=== PATIENT | female | born 1950 | race Caucasian/White ===

== ENCOUNTER 2017-11-12 16:10 | Inpatient (IN) | payer MEDICARE, MEDICAID ==
--- NOTE | 2017-11-12 16:31 | ED Physician Chart ---
ED Chief Complaint/HPI - Patient Information Date Seen:: 11/12/17 Time Seen:: 16:31 Chief Complaint:: Right knee pain History of Present Illness:: 66 yo female with history of laryngeal cancer undergoing chemotherapy 2 days ago. She then had right knee pain when walking. She is s/p right femur ORIF and right total knee replacement. She was brought by ambulance to ER. At ER, she was noticed to have increased airway secretion and congestion as well as low grade fever. Allergies:: Allergies Allergy/AdvReac Type Severity Reaction Status Date / Time naproxen sodium [From Aleve] Allergy Verified 02/28/16 14:43 Vitals:: Vital Signs - 8 hr 11/12/17 16:17 Temp 98.9 F HR 74 RR 16 BP 131/89 O2 Sat % 97 ED Review of Systems - Review of Systems General/Constitutional: Fever Skin: Skin lesions Head: Headache Eyes: No loss of vision ENT: Other (hoarse voice) Neck: Neck pain, Other (left neck mass) Cardio Vascular: No chest pain Pulmonary: Sputum, Other (congestion, difficulty breathing) GI: No nausea, No vomiting Musculoskeletal: Bone or joint pain ED Past Medical History - Past Medical History Past Medical History: HTN, Other (Laryngeal cancer undergoing chemotherapy) Social History: Smoker (former), No Alcohol, No Drug Use Family Medical History - Family Member Mother History Unknown: Yes Living Status: Hx Family Cancer: No Hx Family Coronary Artery Disease: No Hx Family Hypertension: Yes Hx Family Diabetes: Yes Hx Family Seizures: No Hx Family AIDS: No Hx Family HIV: No Hx Family COPD: No Hx Family Hepatitis: No Hx Family Psychiatric Problems: No ED Physical Exam - Physical Examination General/Constitutional: Awake, Alert Head: Atraumatic Eyes: PERRL Other Skin comments:: neck ecchymosis ENMT: Nasal exam nl Other Neck comments:: Left upper neck large mass Other Respiratory comments:: large airway rhonchi and thick secretion Cardio Vascular: RRR, No murmur, gallop, rubs, NL S1 S2 GI: No tenderness/rebounding/guarding Other GI comments:: G-tube intact Other Extremities comments:: atrophy Neuro/Psych: No focal deficits ED Assessment - Assessment General Assessment: Bronchitis UTI Hypoxemia Hypokalemia Hyponatremia Alkalosis Assessment/Comments:: CBC, CMP, UA CXR, EKG NS 1L IV bolus Rocephin KCL 40mEq PO DuoNeb Pain control Admit to med surg ED Septic Shock - . Is Septic Shock (SBP<90, OR Lactate>4 mmol\L) present?: No - <6hrs of presentation: Vital Signs: Vital Signs - 8 hr 11/12/17 16:17 Temp 98.9 F HR 74 RR 16 BP 131/89 O2 Sat % 97 ED Reassessment (Disposition) - Reassessment Reassessment Condition:: Improved - Patient Disposition Discharge/Transfer:: Acute Care w/in this hosp Admitting Medical Physician:: Bassam Owen
[2017-11-12 17:00] LABS: % BASOPHILS 1.3 % (0.0-2.0); % EOSINOPHILS 0.1 % (0.0-5.0); % LYMPHOCYTES 27.2 % (20.0-50.0); % MONOCYTES 8.2 % (2.0-10.0); % NEUTROPHILS 63.2 % (40.0-80.0); BASOPHILE ABSOLUTE 0.1 Th/cumm (0-0.2); HEMATOCRIT 31.2 % (41.0-60); HEMOGLOBIN 10.7 gm/dL (12-16); LYMPHOCYTE ABSOLUTE 1.8 Th/cmm (1.5-3.0); MEAN CELL VOLUME 85.5 fl (81-100); MEAN CORPUSCULAR HEMOGLOBIN 29.3 pg (27.0-31.0); MEAN CORPUSCULAR HGB CONC 34.2 pg (28.0-36.0); MEAN PLATELET VOLUME 7.3 fl; MONOCYTE ABSOLUTE 0.5 Th/cmm (0.3-1.0); NEUTROPHILE ABSOLUTE 4.2 Th/cmm (1.8-8.0); RED BLOOD COUNT 3.65 Mil/cmm (3.80-5.20); RED CELL DISTRIBUTION WIDTH 14.6 % (11.5-20.0); WHITE BLOOD COUNT 6.6 Th/cmm (4.8-10.8)
[2017-11-12 17:01] LABS: PLATELET COUNT 335 Th/cmm (150-400)
[2017-11-12 17:16] LABS: ALB/GLOB RATIO 0.8 (1.0-1.8); ALBUMIN 3.3 gm/dL (3.7-5.3); ALKALINE PHOSPHATASE 51 U/L (34-104); ANION GAP 14.2 (7.0-16.0); BILIRUBIN,TOTAL 0.7 mg/dL (0.3-1.0); BUN - UREA NITROGEN 19 mg/dL (7-25); CALCIUM SERUM 8.8 mg/dL (8.6-10.3); CARBON DIOXIDE 36.2 mEq/L (21.0-31.0); CHLORIDE 83 mEq/L (98-107); CREATININE - SERUM 0.6 mg/dL (0.6-1.2); GFR AFRICAN-AMERICAN > 60.0 ml/min (>90); GFR NON AFRICAN-AMERICAN > 60.0 ml/min; GLUCOSE 104 mg/dL (70-105); SGOT 43 U/L (13-39); SGPT/ALT 19 U/L (7-52); SODIUM SERUM 131 mEq/L (136-145); TOTAL PROTEIN,SERUM 7.3 gm/dL (6.0-8.3)
[2017-11-12] MEDS ORDERED: Albuterol/Ipratropium Neb 3 ML AERS HHN ONE ×2 (17:22→17:27)
[2017-11-12 17:37] LABS: POTASSIUM SERUM 2.4 mEq/L (3.5-5.1)
[2017-11-12] MEDS ORDERED: Potassium Chloride 20 mEq ER Tab PO ONE (18:59)
[2017-11-12] MEDS ORDERED: Sodium Chloride 0.9% 1,000 ML IV ONE (18:59)
[2017-11-12] MEDS ORDERED: Potassium Chloride Elixir 20 mEq /15 mL UDC ONE (19:19)
[2017-11-12] MEDS ORDERED: Potassium Chloride Elixir 20 mEq /15 mL UDC GT ONE ×2 (19:20→22:38)
[2017-11-12 20:26] LABS: URINE MICROSCOPIC INDICATED? YES; URINE SOURCE RANDOM
[2017-11-12 20:28] LABS: URINE BILIRUBIN NEGATIVE (NEGATIVE); URINE BLOOD TRACE (NEGATIVE); URINE GLUCOSE (UA) NEGATIVE (NEGATIVE); URINE KETONE 40 mg/dL (NEGATIVE); URINE LEUKOCYTE ESTERASE NEGATIVE (NEGATIVE); URINE NITRATE POSITIVE (NEGATIVE); URINE PROTEIN TRACE mg/dL (NEGATIVE)
[2017-11-12 20:32] LABS: URINE CLARITY CLOUDY (CLEAR); URINE COLOR YELLOW
[2017-11-12 20:33] LABS: URINE BACTERIA MANY /hpf (NONE SEEN); URINE EPITHELIAL CELLS FEW /lpf (FEW); URINE RBC NONE SEEN /hpf (0-5); URINE WBC 0-2 /hpf (0-5)
[2017-11-12 20:38] LABS: ALLEN TEST POSITIVE; pH 7.61 (7.35-7.45)
[2017-11-12] MEDS ORDERED: cefTRIAXone 1 GM in Sodium Chloride 0.9% 50 ML IV ONE (20:42)
[2017-11-12] MEDS ORDERED: Ipratropium Neb 0.5 mg/2.5 mL UD HHN STA (21:37)
[2017-11-12] MEDS ORDERED: Ipratropium Neb 0.5 mg/2.5 mL UD HHN ONE (21:41)
[2017-11-12] MEDS ORDERED: Sodium Chloride 0.9% 1,000 ML IV SCH (22:38)
[2017-11-13] MEDS ORDERED: Albuterol/Ipratropium Neb 3 ML AERS HHN SCH
[2017-11-13] MEDS ORDERED: Albuterol/Ipratropium Neb 3 ML AERS HHN ONE (00:18)
[2017-11-13] MEDS ORDERED: Potassium Chloride Elixir 20 mEq /15 mL UDC ONE (01:02)
[2017-11-13] MEDS ORDERED: Morphine Sulfate 2 mg/mL 1mL Syr IVP ONE (01:38)
[2017-11-13] MEDS ORDERED: Morphine Sulfate 2 mg/mL 1mL Syr ONE ×2 (01:41→04:48)
[2017-11-13] MEDS ORDERED: Albuterol/Ipratropium Neb 3 ML AERS HHN PRN (01:52)
[2017-11-13] MEDS ORDERED: Ipratropium Neb 0.5 mg/2.5 mL UD HHN STA (02:22)
[2017-11-13] MEDS ORDERED: Morphine Sulfate 2 mg/mL 1mL Syr IVP STA (02:23)
[2017-11-13] MEDS ORDERED: Ipratropium Neb 0.5 mg/2.5 mL UD HHN ONE (02:43)
[2017-11-13 04:53] LABS: % BASOPHILS 0.1 % (0.0-2.0); % EOSINOPHILS 0.2 % (0.0-5.0); % LYMPHOCYTES 23.6 % (20.0-50.0); % MONOCYTES 9.3 % (2.0-10.0); % NEUTROPHILS 66.8 % (40.0-80.0); HEMOGLOBIN 9.6 gm/dL (12-16); LYMPHOCYTE ABSOLUTE 1.1 Th/cmm (1.5-3.0); MEAN CELL VOLUME 89.6 fl (81-100); MEAN CORPUSCULAR HEMOGLOBIN 31.4 pg (27.0-31.0); MEAN CORPUSCULAR HGB CONC 35.1 pg (28.0-36.0); MEAN PLATELET VOLUME 7.4 fl; MONOCYTE ABSOLUTE 0.4 Th/cmm (0.3-1.0); NEUTROPHILE ABSOLUTE 3.2 Th/cmm (1.8-8.0); PLATELET COUNT 289 Th/cmm (150-400); RED BLOOD COUNT 3.05 Mil/cmm (3.80-5.20); RED CELL DISTRIBUTION WIDTH 14.1 % (11.5-20.0)
[2017-11-13 04:56] LABS: HEMATOCRIT 27.4 % (41.0-60); WHITE BLOOD COUNT 4.7 Th/cmm (4.8-10.8)
[2017-11-13 05:04] LABS: ANION GAP 12.3 (7.0-16.0); BUN - UREA NITROGEN 13 mg/dL (7-25); CALCIUM SERUM 8.1 mg/dL (8.6-10.3); CARBON DIOXIDE 30.5 mEq/L (21.0-31.0); CHLORIDE 96 mEq/L (98-107); CREATININE - SERUM 0.5 mg/dL (0.6-1.2); GFR AFRICAN-AMERICAN > 60.0 ml/min (>90); GFR NON AFRICAN-AMERICAN > 60.0 ml/min; GLUCOSE 123 mg/dL (70-105); POTASSIUM SERUM 3.8 mEq/L (3.5-5.1); SODIUM SERUM 135 mEq/L (136-145)
[2017-11-13] MEDS: Sodium Chloride 0.9% 1,000 ML IV SCH ×2 (05:57→16:31)
--- NOTE | 2017-11-13 08:42 | Diagnostic Imaging Report ---
Portable chest x-ray Time: 1639 hours History: Shortness of breath Allowing for portable technique the heart size is normal. No focal pulmonary parenchymal processes. No hilar or mediastinal abnormalities. Impression: No acute abnormalities.
--- NOTE | 2017-11-13 08:54 | Diagnostic Imaging Report ---
Exam: Right knee joint HISTORY: Pain. Findings: Multiple views of right knee joint reviewed. The study demonstrates a total right knee prosthesis in satisfactory position and orientation. There is no evidence of fracture dislocation. The visualized patella is intact. Extensive plating of the distal right femur with intramedullary rodding appreciated. IMPRESSION: Satisfactory positioning of metallic hardware status post total right knee joint replacement no evidence of fracture dislocation. There is no evidence of soft tissue swelling or joint effusion.
[2017-11-13] MEDS: Albuterol/Ipratropium Neb 3 ML AERS HHN SCH ×4 (10:00→19:13)
[2017-11-13] MEDS ORDERED: Pneumococcal Vaccine 0.5 mL Vial IM ONE (15:58)
[2017-11-13] MEDS: Hydrocodone/APAP 10 mg/325 mg Tab PO PRN (16:06)
--- NOTE | 2017-11-13 16:06 | History & Physical ---
ADMIT DATE: 11/13/2017 CHIEF COMPLAINT: Shortness of breath and cough for a couple of days. HISTORY OF PRESENT ILLNESS: A 66-year-old female with past medical history of laryngeal carcinoma, presented from home with the complaint of chest congestion and a cough for a couple of days. The patient is currently undergoing chemo and radiation for treatment of the laryngeal carcinoma. The patient was diagnosed with laryngeal carcinoma in May after routine dental procedure revealed a possible carcinoma. No surgery was opted for at that time. She is currently seeing Dr. Black for chemotherapy and Dr. Romero for radiation. She has completed 27 treatments of radiation and some more remaining and she approximately started chemotherapy about 4 weeks ago. The patient's daughter states that she has become more short of breath and agitated these last couple of days. She was seen by her PCP who recommended that she come to the hospital for further evaluation at that time. Vital signs: 98 degrees Fahrenheit, pulse rate 123, blood pressure is 124/83 and respiratory rate is 20. PAST MEDICAL HISTORY: Laryngeal carcinoma and hypertension. PAST SURGICAL HISTORY: Denies. PAST FAMILY MEDICAL HISTORY: Unremarkable. SOCIAL HISTORY: Denies tobacco, alcohol or drugs. Lives with family. MEDICATIONS: Reviewed and reconciled. REVIEW OF SYSTEMS: CONSTITUTIONAL: Admits to fevers, chills and sweats. EYES: Denies pain, vision changes or redness. ENT: She has severe dysphagia when she has her G-tube feedings. No ear discharge. Admits to throat pain. RESPIRATORY: Productive cough with shortness of breath for a couple of days with yellow sputum. CARDIOVASCULAR: Tachycardic. Denies chest pain or palpitations. GASTROINTESTINAL: Denies abdominal pain, nausea, vomiting. GENITOURINARY: Denies dysuria, frequency, incontinence. MUSCULOSKELETAL: Denies neck pain, shoulder pain, back pain. SKIN: No rash, jaundice or lesions. NEUROLOGIC: No weakness, numbness or incoordination. PHYSICAL EXAMINATION: HEENT: PERRLA, EOMI. NECK: Two neck masses are present along the left hand side, which are tender to palpation. The patient is actively coughing up sputum. CARDIOVASCULAR: Tachycardic. Positive S1 and S2. LUNGS: Decreased breath sounds bilaterally with rhonchi and wheezing. ABDOMEN: Soft, nontender, nondistended. Bowel sounds present in all 4 quadrants. EXTREMITIES: Has difficulty ambulating, admits to weakness. Muscle strength testing in bilateral upper and lower extremities is 4/5. SKIN: Rash along the left side of the patient's neck for radiation. NEUROLOGIC: Cranial nerves 2-12 are intact. ASSESSMENT AND PLAN: Laryngeal carcinoma, hypertension, right knee pain, anemia of chronic illness, hypokalemia 2.4 and hyponatremia 131. PLAN: Admit to telemetry. Pulmonology has been consulted. CT of the patient's neck has been ordered to ensure that there is no laryngeal compression or tracheal deviation. Positive for urinary tract infection. Rocephin was started. Continue metoprolol for high blood pressure. Potassium has been given for the hypokalemia. DuoNebs for continued shortness of breath. Pulmonology is following. JOB# [id number]
[2017-11-13] MEDS: Morphine Sulfate 4 mg/mL 1mL Syr IVP PRN (18:50)
--- NOTE | 2017-11-13 21:38 | Consultation ---
DATE OF CONSULTATION: 11/13/2017 Thank you very much, Dr. Owen for this consultation. HISTORY OF PRESENT ILLNESS: This is a 66-year-old unfortunate female with history of laryngeal neck cancer, treated with chemotherapy and radiation treatment. The patient presents with right knee pain, also having some mucus congestion on and off. The patient has a fever and some tachycardia on and off and decided to be kept for observation and treatment. The patient appears to be uncomfortable secondary to the pain in knee and has received nebulizer treatment, antibiotics and IV fluids and pain controlled so far. PAST MEDICAL HISTORY: As above. SOCIAL HISTORY: Not available. REVIEW OF SYSTEMS: Unable to obtain because of the patient's condition. PHYSICAL EXAMINATION: GENERAL: Awake, alert, not in acute distress. VITAL SIGNS: Temperature 99.0, pulse 104, respiration is 22, blood pressure 124/83, saturation 100%. HEENT: Atraumatic, normocephalic. Eyes; Pupils react to light and accommodation. Ears, nose and throat normal. NECK: Supple, large mass protruding laterally in the left. There is no stridor appreciated over the mass, very tender to touch and soft and movable. CHEST: Good breath sounds, no wheezing or crackles. HEART: Regular rate and rhythm. ABDOMEN: Soft. EXTREMITIES: No edema. LABORATORY DATA: WBC is 4.7, hemoglobin 9.6, platelets is 289. ABGs: pH 7.61, pCO2 of 31, pO2 of 65, bicarbonate 32, saturation 96%. Sodium is 135, potassium is 3.8, BUN 13, creatinine 0.5. The chest x-ray is clear. IMPRESSION: This is a 66-year-old female with laryngeal cancer status post chemoradiation. No obvious airway obstruction clinically and the patient's knee pain is controlled. PLAN: We will do CT of neck for better evaluation. does not seem to have any airway compromise at this time, we will continue nebulizer treatment and will follow up with you. Thank you very much for this consultation. JOB# [id number] AMANDA
[2017-11-13] MEDS: cefTRIAXone 1 GM in Sodium Chloride 0.9% 50 ML IV SCH ×2 (21:58→22:04)
[2017-11-14] MEDS: Hydrocodone/APAP 10 mg/325 mg Tab PO PRN ×2 (00:34→16:33)
[2017-11-14] MEDS: Sodium Chloride 0.9% 1,000 ML IV SCH ×2 (03:50→14:03)
[2017-11-14 06:47] LABS: % BASOPHILS 0.1 % (0.0-2.0); % LYMPHOCYTES 26.3 % (20.0-50.0); % MONOCYTES 10.1 % (2.0-10.0); % NEUTROPHILS 62.5 % (40.0-80.0); HEMATOCRIT 27.8 % (41.0-60); HEMOGLOBIN 9.6 gm/dL (12-16); LYMPHOCYTE ABSOLUTE 1.1 Th/cmm (1.5-3.0); MEAN CELL VOLUME 88.5 fl (81-100); MEAN CORPUSCULAR HEMOGLOBIN 30.6 pg (27.0-31.0); MEAN CORPUSCULAR HGB CONC 34.6 pg (28.0-36.0); MEAN PLATELET VOLUME 7.2 fl; MONOCYTE ABSOLUTE 0.4 Th/cmm (0.3-1.0); NEUTROPHILE ABSOLUTE 2.5 Th/cmm (1.8-8.0); PLATELET COUNT 267 Th/cmm (150-400); RED BLOOD COUNT 3.14 Mil/cmm (3.80-5.20); RED CELL DISTRIBUTION WIDTH 14.9 % (11.5-20.0)
[2017-11-14 07:25] LABS: BUN - UREA NITROGEN 6 mg/dL (7-25); CALCIUM SERUM 7.7 mg/dL (8.6-10.3); CHLORIDE 93 mEq/L (98-107); CREATININE - SERUM 0.4 mg/dL (0.6-1.2); GFR AFRICAN-AMERICAN > 60.0 ml/min (>90); GFR NON AFRICAN-AMERICAN > 60.0 ml/min; GLUCOSE 97 mg/dL (70-105); SODIUM SERUM 132 mEq/L (136-145)
[2017-11-14 07:41] LABS: POTASSIUM SERUM 2.8 mEq/L (3.5-5.1)
[2017-11-14] MEDS: Albuterol/Ipratropium Neb 3 ML AERS HHN SCH ×4 (07:45→19:53)
[2017-11-14 08:13] LABS: ANION GAP 11.1 (7.0-16.0); CARBON DIOXIDE 30.7 mEq/L (21.0-31.0)
[2017-11-14] MEDS: Morphine Sulfate 4 mg/mL 1mL Syr IVP PRN ×2 (08:41→17:46)
[2017-11-14] MEDS: fentaNYL 50 mcg/hr Tdm Patch TD SCH ×2 (08:42→08:52)
[2017-11-14] MEDS ORDERED: Potassium Chloride 20 mEq ER Tab PO ONE ×2 (10:03→14:00)
--- NOTE | 2017-11-14 10:53 | Diagnostic Imaging Report ---
Exam: CT examination of the neck HISTORY: Laryngeal neoplasm Total DLP equals 1127 CTDI equals 33.5 graft 5: Multiple contiguous thin section of the soft tissues of the neck were obtained without the demonstration contrast material the study extremely limited. The study demonstrates a large left submandibular mass extending into the left submandibular salivary gland measuring 5.3-3.3 cm diameter. Examination with contrast material the helpful There is evidence of for soft tissue prominence of the right hypopharynx with obliteration of the right performed sinus. Clinical correlation and repeat examination with contrast material is recommended. There is evidence of maxilla sinusitis. Bony structures demonstrate no evidence of fracture dislocation. No prevertebral soft tissue swelling is noted. The upper and weighs intact. The esophagus is not seen. Vascular calcifications appreciated. Degenerative changes of the cervical spine noted. IMPRESSION: Large left submandibular mass extending towards midline measuring 5.3 x 3.3 cm diameter. Examination with contrast material and biopsies recommended. Fullness of the right hypopharynx with obliteration of the right performed sinus adenopathy cannot be excluded. Sinusitis.
[2017-11-14] MEDS: HYDROmorphone 1 mg/mL 1mL Syr IVP PRN (12:26)
[2017-11-14] MEDS ORDERED: Probiotic Screen MC PRN (16:00)
[2017-11-14] MEDS: cefTRIAXone 1 GM in Sodium Chloride 0.9% 50 ML IV SCH (21:19)
[2017-11-15] MEDS: Sodium Chloride 0.9% 1,000 ML IV SCH ×3 (00:34→21:29)
[2017-11-15] MEDS: Hydrocodone/APAP 10 mg/325 mg Tab PO PRN (05:49)
[2017-11-15] MEDS: Albuterol/Ipratropium Neb 3 ML AERS HHN SCH ×4 (08:00→18:29)
[2017-11-15 08:43] LABS: ALB/GLOB RATIO 0.8 (1.0-1.8); ALBUMIN 2.5 gm/dL (3.7-5.3); ALKALINE PHOSPHATASE 41 U/L (34-104); ANION GAP 9.9 (7.0-16.0); BILIRUBIN,TOTAL 0.4 mg/dL (0.3-1.0); BUN - UREA NITROGEN 3 mg/dL (7-25); CALCIUM SERUM 7.6 mg/dL (8.6-10.3); CARBON DIOXIDE 27.1 mEq/L (21.0-31.0); CHLORIDE 94 mEq/L (98-107); CREATININE - SERUM 0.5 mg/dL (0.6-1.2); GFR AFRICAN-AMERICAN > 60.0 ml/min (>90); GFR NON AFRICAN-AMERICAN > 60.0 ml/min; GLUCOSE 98 mg/dL (70-105); SGOT 16 U/L (13-39); SGPT/ALT 12 U/L (7-52); SODIUM SERUM 127 mEq/L (136-145); TOTAL PROTEIN,SERUM 5.8 gm/dL (6.0-8.3)
[2017-11-15] MEDS: Morphine Sulfate 4 mg/mL 1mL Syr IVP PRN ×2 (09:16→14:33)
--- NOTE | 2017-11-15 10:11 | Progress Notes ---
DATE: SUBJECTIVE: The patient is lying comfortably in bed, does not appear to be in any acute pain or distress. She complains that her fentanyl patch is not controlling her pain well. The patch has been discontinued. Dilaudid was added due to severe pain. She continues G-tube feeds. She is complaining of increased sputum production, but denies shortness of breath. OBJECTIVE: VITAL SIGNS: Temperature 97.4 degrees, pulse rate 98, blood pressure 126/78, respiration rate 22. GENERAL: NAD. HEENT: PERRLA, EOMI. NECK: Two neck masses on the left hand side with radiation scars on her neck. NECK: Supple. CARDIOVASCULAR: Regular rate and rhythm. RESPIRATORY: Decreased breath sounds with rhonchi bilaterally. No wheezing or rales. ABDOMEN: Soft, nontender, nondistended. Bowel sounds present in all 4 quadrants. Positive G-tube. SKIN: No rashes or open wounds. MUSCULOSKELETAL: Muscle strengths in bilateral upper and lower extremities 4/5. LABORATORY DATA: Hemoglobin 7.6. White blood cell count is 4. Potassium is 2.8. Sodium is 132. DIAGNOSES: Laryngeal carcinoma, hypokalemia, hyponatremia, hypertension, right knee pain, anemia of chronic illness, and urinary tract infection. PLAN: Pulmonology is following. Scopolamine patch has been added due to excessive respiratory secretions. A CT of the patient's neck has been ordered and the results are currently pending. She has urinary tract infection. Please continue Rocephin. Continue metoprolol for high blood pressure. Rate is currently controlled, 80 mEq of potassium will be given to the patient and the BNP will be repeated this afternoon. JOB# [id number]
[2017-11-15] MEDS: HYDROmorphone 1 mg/mL 1mL Syr IVP PRN ×3 (11:24→21:28)
--- NOTE | 2017-11-15 13:45 | Diagnostic Imaging Report ---
Portable chest x-ray History: Shortness of breath Allowing for portable technique the heart size is normal. No focal pulmonary parenchymal processes. No hilar or mediastinal abnormalities. Impression: No acute abnormalities.
[2017-11-15] MEDS: cefTRIAXone 1 GM in Sodium Chloride 0.9% 50 ML IV SCH (21:28)
--- NOTE | 2017-11-16 00:09 | Discharge Summary ---
DATE OF DISCHARGE: DISCHARGE DIAGNOSES: Laryngeal carcinoma; hypokalemia, resolved; hyponatremia; hypertension; right knee pain, resolved; anemia of chronic illness; urinary tract infection and possible bronchitis. ADMIT DIAGNOSES: Laryngeal carcinoma, urinary tract infection, hypokalemia, hyponatremia, hypertension, right knee pain, anemia of chronic illness. HISTORY OF PRESENT ILLNESS: A 66-year-old female presented from home with a chief complaint of cough and chest congestion for a couple of days. The patient is currently being treated for laryngeal carcinoma and undergoing chemo and radiation at local facilities. The family stated that the patient was having more difficulty with swallowing and continued to make a gurgling sound every time she would breathe, so they brought her to the hospital for further evaluation. CT of the neck was performed and revealed that the patient does have a left-sided soft tissue mass and it revealed a large left submandibular mass extending towards the midline, 5.3 x 3.3 cm, the patient's shortness of breath started to resolve with the scopolamine patch and IV antibiotics were given. The patient will likely require physical therapy due to muscle weakness. A PT evaluation was ordered and deemed that she would require continued physical therapy. The family feels more comfortable sending the patient to halfway facility for continued respiratory support rather than bring her back home at this time. She will resume tube feeds as well as free water flushes to help with hydration. A dietary evaluation was performed as well. The patient and patient's family members are in agreement to send the patient to SNF and she will be discharged today. VITAL SIGNS: Heart rate 90, respirations 18, O2 sat 99%, 101.3 degree temperature and a blood pressure of 102/59. LABS: Have hemoglobin 9.6 and the white blood cell count is 4.0. DISPOSITION: group home stable, to follow Dr. Owen. PROCEDURES: None. COMPLICATIONS: None. JOB# [id number]
[2017-11-16] MEDS: Albuterol/Ipratropium Neb 3 ML AERS HHN SCH ×4 (07:57→19:35)
--- NOTE | 2017-11-16 08:06 | General Progress Note ---
Subjective - Review of Systems Service Date: 11/16/17 Subjective: ADDENDUM TO DC SUMMARY: pt seen and eval. Likely to be dc'd to snf today. DC was not carried out on due to placement issues. Case management and myself working on it. No n,v,d or cp. K replenished on 11/15/17. On abx. No fevers or chills. Objective - Results Result Diagrams: 11/14/17 06:21 11/15/17 08:03 Recent Labs: Laboratory Last Values WBC 4.0 Th/cmm (4.8-10.8) L 11/14/17 06:21 RBC 3.14 Mil/cmm (3.80-5.20) L 11/14/17 06:21 Hgb 9.6 gm/dL (12-16) L 11/14/17 06:21 Hct 27.8 % (41.0-60) L 11/14/17 06:21 MCV 88.5 fl (81-100) 11/14/17 06:21 MCH 30.6 pg (27.0-31.0) 11/14/17 06:21 MCHC Differential 34.6 pg (28.0-36.0) 11/14/17 06:21 RDW 14.9 % (11.5-20.0) 11/14/17 06:21 Plt Count 267 Th/cmm (150-400) 11/14/17 06:21 MPV 7.2 fl 11/14/17 06:21 Neutrophils % 62.5 % (40.0-80.0) 11/14/17 06:21 Lymphocytes % 26.3 % (20.0-50.0) 11/14/17 06:21 Monocytes % 10.1 % (2.0-10.0) H 11/14/17 06:21 Eosinophils % 1.0 % (0.0-5.0) 11/14/17 06:21 Basophils % 0.1 % (0.0-2.0) 11/14/17 06:21 Specimen Source ARTERIAL 11/12/17 19:49 Sample Site RIGHT RADIAL 11/12/17 19:49 pH 7.61 (7.35-7.45) H* 11/12/17 19:49 pCO2 31.0 mmHg (35.0-45.0) L 11/12/17 19:49 pO2 65.0 mmHg (80.0-100.0) L 11/12/17 19:49 HCO3 32.4 mEq/L (20.0-26.0) H 11/12/17 19:49 Base Excess 9.6 mEq/L (-3.0-3.0) H 11/12/17 19:49 O2 Saturation 96.0 % (92.0-100.0) 11/12/17 19:49 Adria Test POSITIVE 11/12/17 19:49 Vent Rate NA 11/12/17 19:49 Inspired O2 21 11/12/17 19:49 Tidal Volume NA 11/12/17 19:49 PEEP NA 11/12/17 19:49 Pressure (ins/psv/peep) NA 11/12/17 19:49 Critical Value SC 11/12/17 19:49 Sodium 127 mEq/L (136-145) L 11/15/17 08:03 Potassium 4.0 mEq/L (3.5-5.1) 11/15/17 08:03 Chloride 94 mEq/L (98-107) L 11/15/17 08:03 Carbon Dioxide 27.1 mEq/L (21.0-31.0) 11/15/17 08:03 Anion Gap 9.9 (7.0-16.0) 11/15/17 08:03 BUN 3 mg/dL (7-25) L 11/15/17 08:03 Creatinine 0.5 mg/dL (0.6-1.2) L 11/15/17 08:03 Est GFR ( Amer) > 60.0 ml/min (>90) 11/15/17 08:03 Est GFR (Non-Af Amer) > 60.0 ml/min 11/15/17 08:03 BUN/Creatinine Ratio 6.0 11/15/17 08:03 Glucose 98 mg/dL (70-105) 11/15/17 08:03 Calcium 7.6 mg/dL (8.6-10.3) L 11/15/17 08:03 Total Bilirubin 0.4 mg/dL (0.3-1.0) 11/15/17 08:03 AST 16 U/L (13-39) 11/15/17 08:03 ALT 12 U/L (7-52) 11/15/17 08:03 Alkaline Phosphatase 41 U/L (34-104) 11/15/17 08:03 Total Protein 5.8 gm/dL (6.0-8.3) L 11/15/17 08:03 Albumin 2.5 gm/dL (3.7-5.3) L 11/15/17 08:03 Globulin 3.3 gm/dL 11/15/17 08:03 Albumin/Globulin Ratio 0.8 (1.0-1.8) L 11/15/17 08:03 Urine Source RANDOM 11/12/17 19:42 Urine Color YELLOW 11/12/17 19:42 Urine Clarity CLOUDY (CLEAR) H 11/12/17 19:42 Urine pH 6.0 (4.6 - 8.0) 11/12/17 19:42 Ur Specific [place] 1.020 (1.005-1.030) 11/12/17 19:42 Urine Protein TRACE mg/dL (NEGATIVE) 11/12/17 19:42 Urine Glucose (UA) NEGATIVE mg/dL (NEGATIVE) 11/12/17 19:42 Urine Ketones 40 mg/dL (NEGATIVE) H 11/12/17 19:42 Urine Blood TRACE (NEGATIVE) 11/12/17 19:42 Urine Nitrate POSITIVE (NEGATIVE) H 11/12/17 19:42 Urine Bilirubin NEGATIVE (NEGATIVE) 11/12/17 19:42 Urine Urobilinogen 1.0 E.U./dL (0.2 - 1.0) 11/12/17 19:42 Ur Leukocyte Esterase NEGATIVE (NEGATIVE) 11/12/17 19:42 Urine RBC NONE SEEN /hpf (0-5) 11/12/17 19:42 Urine WBC 0-2 /hpf (0-5) 11/12/17 19:42 Ur Epithelial Cells FEW /lpf (FEW) 11/12/17 19:42 Urine Bacteria MANY /hpf (NONE SEEN) H 11/12/17 19:42 - Physical Exam Vitals and I&O: Vital Signs Temp 98.5 F 11/16/17 07:57 Pulse 112 11/16/17 08:00 Resp 18 11/16/17 08:01 BP 141/91 11/16/17 07:57 Pulse Ox 98 11/16/17 08:00 Intake & Output 11/15/17 11/16/17 11/16/17 18:59 06:59 18:59 Intake Total 1000 1690 Balance 1000 1690 Weight (lbs) 47.627 kg Intake: Intake, IV Amount 1000 1300 Sodium Chloride 0.9% 1, 1000 1000 000 ml @ 100 mls/hr IV . Q10H [facility] Rx#:[id number] cefTRIAXone 1 gm In 50 Sodium Chloride 0.9% 50 ml @ 100 mls/hr IV Q24HR@ 2200 [facility] Rx#:[id number] Tube Feeding 390 Other: # Voids 4 # Bowel Movements 0 Stool Characteristics Soft Soft Formed Formed Active Medications: Current Medications Acetaminophen (Tylenol) 500 mg GT Q6H PRN PRN Reason: Fever > 101 Stop: 01/13/18 17:34 Last Admin: 11/14/17 18:03 Dose: 500 mg Acetaminophen/Hydrocodone Bitart ([place] 10 Mg/325 Mg) 1 tab PO Q6H PRN PRN Reason: Moderate Pain Stop: 01/12/18 01:51 Last Admin: 11/15/17 05:49 Dose: 1 tab Albuterol/Ipratropium (Duoneb Neb) 3 ml HHN [id number] [facility] Stop: 01/12/18 06:59 Last Admin: 11/16/17 07:57 Dose: 3 ml Albuterol/Ipratropium (Duoneb Neb) 3 ml HHN Q4HRT PRN PRN Reason: Shortness of Breath Stop: 01/12/18 01:51 Hydromorphone HCl (Dilaudid) 1 mg IVP Q4HR PRN PRN Reason: Severe pain Stop: 01/13/18 10:24 Last Admin: 11/15/17 21:28 Dose: 1 mg Ceftriaxone Sodium 1 gm/ (Sodium Chloride) 50 mls @ 100 mls/hr IV Q24HR@2200 [facility] Stop: 01/11/18 22:37 Last Infusion: 11/15/17 21:58 Dose: Infused Sodium Chloride (Nacl 0.9%) 1,000 mls @ 100 mls/hr IV .Q10H [facility] Stop: 01/12/18 01:59 Last Admin: 11/15/17 21:29 Dose: 100 mls/hr Lorazepam (Ativan) 1 mg IVP Q4H PRN; Protocol PRN Reason: Anxiety/Agitation Stop: 01/12/18 01:51 Metoprolol Tartrate (Lopressor) 50 mg PO BID [facility] Stop: 01/12/18 08:59 Last Admin: 11/15/17 17:34 Dose: 50 mg Miscellaneous (Probiotic Screen) 1 ea PRN PRN PRN Reason: PROTOCOL Stop: 01/13/18 15:59 Miscellaneous (Vancomycin Iv Per Pharmacy) 1 ea PRN PRN PRN Reason: PROTOCOL Stop: 01/14/18 19:22 Morphine Sulfate (Morphine) 4 mg IVP Q3HR PRN PRN Reason: Pain (Severe) Stop: 01/12/18 18:25 Last Admin: 11/15/17 14:33 Dose: 4 mg Ondansetron HCl (Zofran) 4 mg IVP Q6H PRN PRN Reason: Nausea / Vomiting Stop: 01/12/18 01:51 Last Admin: 11/14/17 14:03 Dose: 4 mg Pantoprazole Sodium (Protonix) 40 mg IVP DAILY [facility] Stop: 01/12/18 18:44 Last Admin: 11/15/17 09:04 Dose: 40 mg Phenazopyridine HCl (Pyridium) 100 mg PO BID [facility] Stop: 01/13/18 10:14 Last Admin: 11/15/17 17:34 Dose: 100 mg General: No acute distress HEENT: Atraumatic, PERRLA Neck: no JVD Cardiovascular: Regular rate, Normal S1, Normal S2 Lungs: Clear to auscultation, Normal air movement Abdomen: Bowel sounds, Soft - Procedures Procedures: Procedures Procedure Code Date ANT NASAL PACK FOR EPIST 21.01 01/21/08 CONTROL OF NOSEBLEED 75161 01/21/08 Assessment/Plan - Problem List Patient Problems: All Active Problems PAINFUL URIINATION (Acute) Pelvic pain (Acute) R10.2 UTI (urinary tract infection), bacterial (Acute) N39.0 - Assessment Assessment: Laryngeal Carcinoma UTI Severe hypokalemia Hyponatremia HTN R knee pain - Plan Plan: ADDENDUM TO DC SUMMARY: pt seen and eval. Likely to be dc'd to snf today. DC was not carried out on due to placement issues. Case management and myself working on it. No n,v,d or cp. K replenished on 11/15/17. On abx. No fevers or chills. Nutritional Asmnt/Malnutr-PDOC - Dietary Evaluation Malnutrition Findings (Please click <Entered> for more info): Nutritional Asmnt/Malnutrition Start: 11/15/17 17: 52 Text: Status: Complete Freq: Document 11/15/17 17:52 GARY (Rec: 11/15/17 18:05 JORGE [email or web address]) Nutritional Asmnt/Malnutrition Patient General Information Nutritional Screening High Risk Consult Diagnosis UTI Pertinent Medical Hx/Surgical Hx laryngeal carcinoma, HTN Subjective Information Consult received for low wt d/ t cancer. Pt seen busy with medical staff at time of visit . Spoke with RN, RN reported pt now only taking boost via gtube. Pt family did not want too much feeding, said pt was small eater. Current Diet Order/ Nutrition Support Boost BID Pertinent Medications protonix, nacl 0.9% Pertinent Labs 11/15 na 127, K 4.0, Cl 94, BUN 3, Cr 0.5, Glucose 98, Ca 7.6 Nutritional Hx/Data Height 1.47 m Height (Calculated Centimeters) 147.3 Current Weight (lbs) 47.627 kg Weight (Calculated Kilograms) 47.6 Weight (Calculated Grams) 49825.2 [place] Body Weight 96 % [place] Body Weight 109 Body Mass Index (BMI) 21.9 Weight Status Approriate GI Symptoms GI Symptoms None Last BM none since adm Difficult in: None Skin Integrity/Comment: intact Current %PO Negligible < 25% Estimated Nutritional Goals BEE in Kcals: Using Current wt Calories/Kcals/Kg 27-32 Kcals Calculated 9855-2547 Protein: Using Current wt Protein g/k.2-1.4 Protein Calculated 56-67 Fluid: ml 1296-1536ml (1ml/kcal) Nutritional Problem 1. Problem Problem inadequate intake from enteral feeding Etiology pt taking boost 2 cans daily Signs/Symptoms: current intake meeting 74% of calorie needs and 71% of protein needs Intervention/Recommendation Comments 1. Recommend modify TF to Boost Plus QID to increase nutrition needs. This will provide 1440kcal and 56g protein, meeting 100% of nutritional needs. RN notified . 2. Monitor TF tolerance, wt weekly, skin integrity and labs 3. F/U as moderate risk in 3-5 days, 2/8-11/20 Expected Outcomes/Goals Expected Outcomes/Goals 1. PO intake to meet at least 75% of nutritional needs. 2. Wt stability, skin to remain intact, labs to approach WNL.
[2017-11-16] MEDS: Hydrocodone/APAP 10 mg/325 mg Tab PO PRN (09:04)
[2017-11-16] MEDS: Sodium Chloride 0.9% 1,000 ML IV SCH ×2 (10:43→20:33)
[2017-11-16] MEDS: Morphine Sulfate 4 mg/mL 1mL Syr IVP PRN (10:43)
[2017-11-16] MEDS: HYDROmorphone 1 mg/mL 1mL Syr IVP PRN ×2 (17:19→22:43)
[2017-11-16] MEDS: cefTRIAXone 1 GM in Sodium Chloride 0.9% 50 ML IV SCH (22:42)
[2017-11-17] MEDS: HYDROmorphone 1 mg/mL 1mL Syr IVP PRN ×4 (05:21→18:29)
--- NOTE | 2017-11-17 06:52 | General Progress Note ---
Subjective - Review of Systems Service Date: 11/17/17 Subjective: ADDENDUM TO DC SUMMARY: pt seen and eval. Likely to be dc'd to snf today. DC was not carried out on due to placement issues. Case management and myself working on it. Also, Pt may need to go home with home health as the contracted SNF are unable to accept her. No n,v,d or cp. K replenished on 11/15/17. On abx. No fevers or chills. continue to require morphine for pain. Objective - Results Result Diagrams: 11/14/17 06:21 11/15/17 08:03 Recent Labs: Laboratory Last Values WBC 4.0 Th/cmm (4.8-10.8) L 11/14/17 06:21 RBC 3.14 Mil/cmm (3.80-5.20) L 11/14/17 06:21 Hgb 9.6 gm/dL (12-16) L 11/14/17 06:21 Hct 27.8 % (41.0-60) L 11/14/17 06:21 MCV 88.5 fl (81-100) 11/14/17 06:21 MCH 30.6 pg (27.0-31.0) 11/14/17 06:21 MCHC Differential 34.6 pg (28.0-36.0) 11/14/17 06:21 RDW 14.9 % (11.5-20.0) 11/14/17 06:21 Plt Count 267 Th/cmm (150-400) 11/14/17 06:21 MPV 7.2 fl 11/14/17 06:21 Neutrophils % 62.5 % (40.0-80.0) 11/14/17 06:21 Lymphocytes % 26.3 % (20.0-50.0) 11/14/17 06:21 Monocytes % 10.1 % (2.0-10.0) H 11/14/17 06:21 Eosinophils % 1.0 % (0.0-5.0) 11/14/17 06:21 Basophils % 0.1 % (0.0-2.0) 11/14/17 06:21 Specimen Source ARTERIAL 11/12/17 19:49 Sample Site RIGHT RADIAL 11/12/17 19:49 pH 7.61 (7.35-7.45) H* 11/12/17 19:49 pCO2 31.0 mmHg (35.0-45.0) L 11/12/17 19:49 pO2 65.0 mmHg (80.0-100.0) L 11/12/17 19:49 HCO3 32.4 mEq/L (20.0-26.0) H 11/12/17 19:49 Base Excess 9.6 mEq/L (-3.0-3.0) H 11/12/17 19:49 O2 Saturation 96.0 % (92.0-100.0) 11/12/17 19:49 Adria Test POSITIVE 11/12/17 19:49 Vent Rate NA 11/12/17 19:49 Inspired O2 21 11/12/17 19:49 Tidal Volume NA 11/12/17 19:49 PEEP NA 11/12/17 19:49 Pressure (ins/psv/peep) NA 11/12/17 19:49 Critical Value SC 11/12/17 19:49 Sodium 127 mEq/L (136-145) L 11/15/17 08:03 Potassium 4.0 mEq/L (3.5-5.1) 11/15/17 08:03 Chloride 94 mEq/L (98-107) L 11/15/17 08:03 Carbon Dioxide 27.1 mEq/L (21.0-31.0) 11/15/17 08:03 Anion Gap 9.9 (7.0-16.0) 11/15/17 08:03 BUN 3 mg/dL (7-25) L 11/15/17 08:03 Creatinine 0.5 mg/dL (0.6-1.2) L 11/15/17 08:03 Est GFR ( Amer) > 60.0 ml/min (>90) 11/15/17 08:03 Est GFR (Non-Af Amer) > 60.0 ml/min 11/15/17 08:03 BUN/Creatinine Ratio 6.0 11/15/17 08:03 Glucose 98 mg/dL (70-105) 11/15/17 08:03 Calcium 7.6 mg/dL (8.6-10.3) L 11/15/17 08:03 Total Bilirubin 0.4 mg/dL (0.3-1.0) 11/15/17 08:03 AST 16 U/L (13-39) 11/15/17 08:03 ALT 12 U/L (7-52) 11/15/17 08:03 Alkaline Phosphatase 41 U/L (34-104) 11/15/17 08:03 Total Protein 5.8 gm/dL (6.0-8.3) L 11/15/17 08:03 Albumin 2.5 gm/dL (3.7-5.3) L 11/15/17 08:03 Globulin 3.3 gm/dL 11/15/17 08:03 Albumin/Globulin Ratio 0.8 (1.0-1.8) L 11/15/17 08:03 Urine Source RANDOM 11/12/17 19:42 Urine Color YELLOW 11/12/17 19:42 Urine Clarity CLOUDY (CLEAR) H 11/12/17 19:42 Urine pH 6.0 (4.6 - 8.0) 11/12/17 19:42 Ur Specific [place] 1.020 (1.005-1.030) 11/12/17 19:42 Urine Protein TRACE mg/dL (NEGATIVE) 11/12/17 19:42 Urine Glucose (UA) NEGATIVE mg/dL (NEGATIVE) 11/12/17 19:42 Urine Ketones 40 mg/dL (NEGATIVE) H 11/12/17 19:42 Urine Blood TRACE (NEGATIVE) 11/12/17 19:42 Urine Nitrate POSITIVE (NEGATIVE) H 11/12/17 19:42 Urine Bilirubin NEGATIVE (NEGATIVE) 11/12/17 19:42 Urine Urobilinogen 1.0 E.U./dL (0.2 - 1.0) 11/12/17 19:42 Ur Leukocyte Esterase NEGATIVE (NEGATIVE) 11/12/17 19:42 Urine RBC NONE SEEN /hpf (0-5) 11/12/17 19:42 Urine WBC 0-2 /hpf (0-5) 11/12/17 19:42 Ur Epithelial Cells FEW /lpf (FEW) 11/12/17 19:42 Urine Bacteria MANY /hpf (NONE SEEN) H 11/12/17 19:42 - Physical Exam Vitals and I&O: Vital Signs Temp 98.4 F 11/17/17 04:00 Pulse 94 11/17/17 04:00 Resp 18 11/17/17 04:00 BP 147/84 11/17/17 04:00 Pulse Ox 99 11/17/17 04:00 Intake & Output 11/16/17 11/16/17 11/17/17 06:59 18:59 06:59 Intake Total 1690 1950 1283.333 Balance 1690 1950 1283.333 Weight (lbs) 47.627 kg 47.627 kg Intake: Intake, IV Amount 1300 1000 1283.333 Sodium Chloride 0.9% 1, 1000 1000 983.333 000 ml @ 100 mls/hr IV . Q10H [facility] Rx#:[id number] Vancomycin HCl 1 gm In 250 Sodium Chloride 0.9% 250 ml @ 165 mls/hr IV Q24H [facility] Rx#:[id number] cefTRIAXone 1 gm In 50 50 Sodium Chloride 0.9% 50 ml @ 100 mls/hr IV Q24HR@ 2200 [facility] Rx#:[id number] Tube Feeding 390 750 Other 200 Other: # Voids 4 3 # Bowel Movements 0 1 Stool Characteristics Soft Formed Active Medications: Current Medications Acetaminophen (Tylenol) 500 mg GT Q6H PRN PRN Reason: Fever > 101 Stop: 01/13/18 17:34 Last Admin: 11/16/17 21:11 Dose: 500 mg Acetaminophen/Hydrocodone Bitart ([place] 10 Mg/325 Mg) 1 tab PO Q6H PRN PRN Reason: Moderate Pain Stop: 01/12/18 01:51 Last Admin: 11/16/17 09:04 Dose: 1 tab Albuterol/Ipratropium (Duoneb Neb) 3 ml HHN [id number] [facility] Stop: 01/12/18 06:59 Last Admin: 11/16/17 19:35 Dose: 3 ml Albuterol/Ipratropium (Duoneb Neb) 3 ml HHN Q4HRT PRN PRN Reason: Shortness of Breath Stop: 01/12/18 01:51 Hydromorphone HCl (Dilaudid) 1 mg IVP Q4HR PRN PRN Reason: Severe pain Stop: 01/13/18 10:24 Last Admin: 11/17/17 05:21 Dose: 1 mg Ceftriaxone Sodium 1 gm/ (Sodium Chloride) 50 mls @ 100 mls/hr IV Q24HR@2200 [facility] Stop: 01/11/18 22:37 Last Infusion: 11/17/17 05:55 Dose: Infused Sodium Chloride (Nacl 0.9%) 1,000 mls @ 100 mls/hr IV .Q10H [facility] Stop: 01/12/18 01:59 Last Admin: 11/16/17 20:33 Dose: 100 mls/hr Vancomycin HCl 1 gm/ Sodium (Chloride) 250 mls @ 165 mls/hr IV Q24H [facility] Stop: 01/15/18 19:59 Last Infusion: 11/17/17 05:55 Dose: Infused Lorazepam (Ativan) 1 mg IVP Q4H PRN; Protocol PRN Reason: Anxiety/Agitation Stop: 01/12/18 01:51 Metoprolol Tartrate (Lopressor) 50 mg PO BID [facility] Stop: 01/12/18 08:59 Last Admin: 11/16/17 17:18 Dose: 50 mg Miscellaneous (Probiotic Screen) 1 [facility] PRN PRN PRN Reason: PROTOCOL Stop: 01/13/18 15:59 Miscellaneous (Vancomycin Iv Per Pharmacy) 1 [facility] PRN PRN PRN Reason: PROTOCOL Stop: 01/14/18 19:22 Morphine Sulfate (Morphine) 4 mg IVP Q3HR PRN PRN Reason: Pain (Severe) Stop: 01/12/18 18:25 Last Admin: 11/16/17 10:43 Dose: 4 mg Ondansetron HCl (Zofran) 4 mg IVP Q6H PRN PRN Reason: Nausea / Vomiting Stop: 01/12/18 01:51 Last Admin: 11/14/17 14:03 Dose: 4 mg Pantoprazole Sodium (Protonix) 40 mg IVP DAILY [facility] Stop: 01/12/18 18:44 Last Admin: 11/16/17 08:40 Dose: 40 mg Phenazopyridine HCl (Pyridium) 100 mg PO BID [facility] Stop: 01/13/18 10:14 Last Admin: 11/16/17 17:19 Dose: 100 mg General: Mild distress HEENT: Atraumatic, PERRLA Neck: no JVD Cardiovascular: Regular rate, Normal S1, Normal S2 Lungs: Clear to auscultation, Normal air movement Abdomen: Bowel sounds, Soft - Procedures Procedures: Procedures Procedure Code Date ANT NASAL PACK FOR EPIST 21.01 01/21/08 CONTROL OF [place]SE[place] 92403 04/12/08 Assessment/Plan - Problem List Patient Problems: All Active Problems PAINFUL URIINATION (Acute) Pelvic pain (Acute) R10.2 UTI (urinary tract infection), bacterial (Acute) N39.0 - Assessment Assessment: Laryngeal Carcinoma UTI Severe hypokalemia Hyponatremia HTN R knee pain - Plan Plan: ADDENDUM TO DC SUMMARY: pt seen and eval. Likely to be dc'd home today. DC was not carried out on due to placement issues. And on 11/16/17, pt was not accepted by any of the contracted SNF's. Case management and myself working on it. Will try to dc home with home health today. No n,v,d or cp. K replenished on 11/15/17. On abx. No fevers or chills. Rocephin DC'd today. Continues to require Morphine for pain at times. Nutritional Asmnt/Malnutr-PDOC - Dietary Evaluation Malnutrition Findings (Please click <Entered> for more info): Nutritional Asmnt/Malnutrition Start: 11/15/17 17: 52 Text: Status: Complete Freq: Document 11/15/17 17:[address] [facility] (Rec: 11/15/17 18:05 HEN [email or web address]) Nutritional Asmnt/Malnutrition Patient General Information Nutritional Screening High Risk Consult Diagnosis UTI Pertinent Medical Hx/Surgical Hx laryngeal carcinoma, HTN Subjective Information Consult received for low wt d/ t cancer. Pt seen busy with medical staff at time of visit . Spoke with RN, RN reported pt now only taking boost via gtube. Pt family did not want too much feeding, said pt was small eater. Current Diet Order/ Nutrition Support Boost BID Pertinent Medications protonix, nacl 0.9% Pertinent Labs 2 na 127, K 4.0, Cl 94, BUN 3, Cr 0.5, Glucose 98, Ca 7.6 Nutritional Hx/Data Height 1.47 m Height (Calculated Centimeters) 147.3 Current Weight (lbs) 47.627 kg Weight (Calculated Kilograms) 47.6 Weight (Calculated Grams) 46373.2 [place] Body Weight 96 % [place] Body Weight 109 Body Mass Index (BMI) 21.9 Weight Status Approriate GI Symptoms GI Symptoms None Last BM none since adm Difficult in: None Skin Integrity/Comment: intact Current %PO Negligible < 25% Estimated Nutritional Goals BEE in Kcals: Using Current wt Calories/Kcals/Kg 27-32 Kcals Calculated 2105-5486 Protein: Using Current wt Protein g/k.2-1.4 Protein Calculated 56-67 Fluid: ml 1296-1536ml (1ml/kcal) Nutritional Problem 1. Problem Problem inadequate intake from enteral feeding Etiology pt taking boost 2 cans daily Signs/Symptoms: current intake meeting 74% of calorie needs and 71% of protein needs Intervention/Recommendation Comments 1. Recommend modify TF to Boost Plus QID to increase nutrition needs. This will provide 1440kcal and 56g protein, meeting 100% of nutritional needs. RN notified . 2. Monitor TF tolerance, wt weekly, skin integrity and labs 3. F/U as moderate risk in 3-5 days, 11/18-11/20 Expected Outcomes/Goals Expected Outcomes/Goals 1. PO intake to meet at least 75% of nutritional needs. 2. Wt stability, skin to remain intact, labs to approach WNL.
[2017-11-17] MEDS: Albuterol/Ipratropium Neb 3 ML AERS HHN SCH ×4 (06:55→19:36)
[2017-11-17] MEDS: Sodium Chloride 0.9% 1,000 ML IV SCH ×2 (09:30→20:02)
[2017-11-17] MEDS: Hydrocodone/APAP 10 mg/325 mg Tab PO PRN (12:03)
[2017-11-17] MEDS: Morphine Sulfate 4 mg/mL 1mL Syr IVP PRN (20:47)
[2017-11-18] MEDS: Hydrocodone/APAP 10 mg/325 mg Tab PO PRN (00:51)
[2017-11-18] MEDS: Morphine Sulfate 4 mg/mL 1mL Syr IVP PRN ×3 (04:56→21:43)
[2017-11-18] MEDS: Albuterol/Ipratropium Neb 3 ML AERS HHN SCH ×4 (07:17→18:49)
[2017-11-18] MEDS: HYDROmorphone 1 mg/mL 1mL Syr IVP PRN ×3 (08:10→18:37)
[2017-11-18] MEDS: Sodium Chloride 0.9% 1,000 ML IV SCH ×2 (08:12→18:44)
--- NOTE | 2017-11-18 08:21 | General Progress Note ---
Subjective - Review of Systems Service Date: 11/18/17 Subjective: ADDENDUM TO DC SUMMARY: pt seen and eval. Likely to be dc'd to snf today. DC was not carried out on due to placement issues. Case management and myself working on it. Also, Pt may need to go home with home health as the contracted SNF are unable to accept her. Tried to DC home but family refusing to take her home. They state they're unable to take care of her. I've called family several times and left messages. Awaiting callback. No n,v,d or cp. K replenished on 11/15/17. On abx. No fevers or chills. continues to require morphine for pain. Objective - Results Result Diagrams: 11/14/17 06:21 11/15/17 08:03 Recent Labs: Laboratory Last Values WBC 4.0 Th/cmm (4.8-10.8) L 11/14/17 06:21 RBC 3.14 Mil/cmm (3.80-5.20) L 11/14/17 06:21 Hgb 9.6 gm/dL (12-16) L 11/14/17 06:21 Hct 27.8 % (41.0-60) L 11/14/17 06:21 MCV 88.5 fl (81-100) 11/14/17 06:21 MCH 30.6 pg (27.0-31.0) 11/14/17 06:21 MCHC Differential 34.6 pg (28.0-36.0) 11/14/17 06:21 RDW 14.9 % (11.5-20.0) 11/14/17 06:21 Plt Count 267 Th/cmm (150-400) 11/14/17 06:21 MPV 7.2 fl 11/14/17 06:21 Neutrophils % 62.5 % (40.0-80.0) 11/14/17 06:21 Lymphocytes % 26.3 % (20.0-50.0) 11/14/17 06:21 Monocytes % 10.1 % (2.0-10.0) H 11/14/17 06:21 Eosinophils % 1.0 % (0.0-5.0) 11/14/17 06:21 Basophils % 0.1 % (0.0-2.0) 11/14/17 06:21 Specimen Source ARTERIAL 11/12/17 19:49 Sample Site RIGHT RADIAL 11/12/17 19:49 pH 7.61 (7.35-7.45) H* 11/12/17 19:49 pCO2 31.0 mmHg (35.0-45.0) L 11/12/17 19:49 pO2 65.0 mmHg (80.0-100.0) L 11/12/17 19:49 HCO3 32.4 mEq/L (20.0-26.0) H 11/12/17 19:49 Base Excess 9.6 mEq/L (-3.0-3.0) H 11/12/17 19:49 O2 Saturation 96.0 % (92.0-100.0) 11/12/17 19:49 Adria Test POSITIVE 11/12/17 19:49 Vent Rate NA 11/12/17 19:49 Inspired O2 21 11/12/17 19:49 Tidal Volume NA 11/12/17 19:49 PEEP NA 11/12/17 19:49 Pressure (ins/psv/peep) NA 11/12/17 19:49 Critical Value SC 11/12/17 19:49 Sodium 127 mEq/L (136-145) L 11/15/17 08:03 Potassium 4.0 mEq/L (3.5-5.1) 11/15/17 08:03 Chloride 94 mEq/L (98-107) L 11/15/17 08:03 Carbon Dioxide 27.1 mEq/L (21.0-31.0) 11/15/17 08:03 Anion Gap 9.9 (7.0-16.0) 11/15/17 08:03 BUN 3 mg/dL (7-25) L 11/15/17 08:03 Creatinine 0.5 mg/dL (0.6-1.2) L 11/15/17 08:03 Est GFR ( Amer) > 60.0 ml/min (>90) 11/15/17 08:03 Est GFR (Non-Af Amer) > 60.0 ml/min 11/15/17 08:03 BUN/Creatinine Ratio 6.0 11/15/17 08:03 Glucose 98 mg/dL (70-105) 11/15/17 08:03 Calcium 7.6 mg/dL (8.6-10.3) L 11/15/17 08:03 Total Bilirubin 0.4 mg/dL (0.3-1.0) 11/15/17 08:03 AST 16 U/L (13-39) 11/15/17 08:03 ALT 12 U/L (7-52) 11/15/17 08:03 Alkaline Phosphatase 41 U/L (34-104) 11/15/17 08:03 Total Protein 5.8 gm/dL (6.0-8.3) L 11/15/17 08:03 Albumin 2.5 gm/dL (3.7-5.3) L 11/15/17 08:03 Globulin 3.3 gm/dL 11/15/17 08:03 Albumin/Globulin Ratio 0.8 (1.0-1.8) L 11/15/17 08:03 Urine Source RANDOM 11/12/17 19:42 Urine Color YELLOW 11/12/17 19:42 Urine Clarity CLOUDY (CLEAR) H 11/12/17 19:42 Urine pH 6.0 (4.6 - 8.0) 11/12/17 19:42 Ur Specific [place] 1.020 (1.005-1.030) 11/12/17 19:42 Urine Protein TRACE mg/dL (NEGATIVE) 11/12/17 19:42 Urine Glucose (UA) NEGATIVE mg/dL (NEGATIVE) 11/12/17 19:42 Urine Ketones 40 mg/dL (NEGATIVE) H 11/12/17 19:42 Urine Blood TRACE (NEGATIVE) 11/12/17 19:42 Urine Nitrate POSITIVE (NEGATIVE) H 11/12/17 19:42 Urine Bilirubin NEGATIVE (NEGATIVE) 11/12/17 19:42 Urine Urobilinogen 1.0 E.U./dL (0.2 - 1.0) 11/12/17 19:42 Ur Leukocyte Esterase NEGATIVE (NEGATIVE) 11/12/17 19:42 Urine RBC NONE SEEN /hpf (0-5) 11/12/17 19:42 Urine WBC 0-2 /hpf (0-5) 11/12/17 19:42 Ur Epithelial Cells FEW /lpf (FEW) 11/12/17 19:42 Urine Bacteria MANY /hpf (NONE SEEN) H 11/12/17 19:42 - Physical Exam Vitals and I&O: Vital Signs Temp 97.8 F 11/18/17 03:00 Pulse 92 11/18/17 08:12 Resp 19 11/18/17 07:17 BP 137/85 11/18/17 08:12 Pulse Ox 97 11/18/17 07:17 Intake & Output 11/17/17 11/18/17 11/18/17 18:59 06:59 18:59 Intake Total 420 2250 Balance 420 2250 Weight (lbs) 47.627 kg 47.627 kg Intake: Intake, IV Amount 2250 Sodium Chloride 0.9% 1, 2000 000 ml @ 100 mls/hr IV . Q10H [facility] Rx#:[id number] Vancomycin HCl 1 gm In 250 Sodium Chloride 0.9% 250 ml @ 165 mls/hr IV Q24H [facility] Rx#:[id number] Tube Feeding 420 Other: # Voids 4 3 Active Medications: Current Medications Acetaminophen (Tylenol) 500 mg GT Q6H PRN PRN Reason: Fever > 101 Stop: 01/13/18 17:34 Last Admin: 11/16/17 21:11 Dose: 500 mg Acetaminophen/Hydrocodone Bitart ([place] 10 Mg/325 Mg) 1 tab PO Q6H PRN PRN Reason: Moderate Pain Stop: 01/12/18 01:51 Last Admin: 11/18/17 00:51 Dose: 1 tab Albuterol/Ipratropium (Duoneb Neb) 3 ml HHN [id number] [facility] Stop: 01/12/18 06:59 Last Admin: 11/18/17 07:17 Dose: 3 ml Albuterol/Ipratropium (Duoneb Neb) 3 ml HHN Q4HRT PRN PRN Reason: Shortness of Breath Stop: 01/12/18 01:51 Hydromorphone HCl (Dilaudid) 1 mg IVP Q4HR PRN PRN Reason: Severe pain Stop: 01/13/18 10:24 Last Admin: 11/18/17 08:10 Dose: 1 mg Sodium Chloride (Nacl 0.9%) 1,000 mls @ 100 mls/hr IV .Q10H [facility] Stop: 01/12/18 01:59 Last Admin: 11/18/17 08:12 Dose: 100 mls/hr Vancomycin HCl 1 gm/ Sodium (Chloride) 250 mls @ 165 mls/hr IV Q24H [facility] Stop: 01/15/18 19:59 Last Infusion: 11/17/17 21:40 Dose: Infused Lorazepam (Ativan) 1 mg IVP Q4H PRN; Protocol PRN Reason: Anxiety/Agitation Stop: 01/12/18 01:51 Metoprolol Tartrate (Lopressor) 50 mg PO BID [facility] Stop: 01/12/18 08:59 Last Admin: 11/18/17 08:12 Dose: 50 mg Miscellaneous (Probiotic Screen) 1 [facility] PRN PRN PRN Reason: PROTOCOL Stop: 01/13/18 15:59 Miscellaneous (Vancomycin Iv Per Pharmacy) 1 [facility] PRN PRN PRN Reason: PROTOCOL Stop: 01/14/18 19:22 Morphine Sulfate (Morphine) 4 mg IVP Q3HR PRN PRN Reason: Pain (Severe) Stop: 01/12/18 18:25 Last Admin: 11/18/17 04:56 Dose: 4 mg Ondansetron HCl (Zofran) 4 mg IVP Q6H PRN PRN Reason: Nausea / Vomiting Stop: 01/12/18 01:51 Last Admin: 11/14/17 14:03 Dose: 4 mg Pantoprazole Sodium (Protonix) 40 mg IVP DAILY [facility] Stop: 01/12/18 18:44 Last Admin: 11/18/17 08:10 Dose: 40 mg Phenazopyridine HCl (Pyridium) 100 mg PO BID [facility] Stop: 01/13/18 10:14 Last Admin: 11/18/17 08:10 Dose: 100 mg General: Mild distress, Other (Weak) HEENT: Atraumatic, PERRLA Neck: no JVD Cardiovascular: Regular rate, Normal S1, Normal S2 Lungs: Clear to auscultation, Normal air movement Abdomen: Bowel sounds, Soft - Procedures Procedures: Procedures Procedure Code Date ANT NASAL PACK FOR EPIST 21.01 01/21/08 CONTROL OF [place] 47534 01/21/08 Assessment/Plan - Problem List Patient Problems: All Active Problems PAINFUL URIINATION (Acute) Pelvic pain (Acute) R10.2 UTI (urinary tract infection), bacterial (Acute) N39.0 - Assessment Assessment: Laryngeal Carcinoma UTI Severe hypokalemia Hyponatremia HTN R knee pain - Plan Plan: ADDENDUM TO DC SUMMARY: Pt seen and eval. Likely to be dc'd home today. DC was not carried out on due to placement issues. And on 11/16/17, pt was not accepted by any of the contracted SNF's. Case management and myself working on it. Been trying to dc home with home health, but family refusing. Tried discussing care, left messages for daughter. No n,v,d or cp. K replenished on 11/15/17. On abx. No fevers or chills. Rocephin has been dc'd. Continues to require Morphine for pain at times. Nutritional Asmnt/Malnutr-PDOC - Dietary Evaluation Malnutrition Findings (Please click <Entered> for more info): Nutritional Asmnt/Malnutrition Start: 11/15/17 17: 52 Text: Status: Complete Freq: Document 11/15/17 17:52 [facility] (Rec: 11/15/17 18:05 GARY [email or web address]) Nutritional Asmnt/Malnutrition Patient General Information Nutritional Screening High Risk Consult Diagnosis UTI Pertinent Medical Hx/Surgical Hx laryngeal carcinoma, HTN Subjective Information Consult received for low wt d/ t cancer. Pt seen busy with medical staff at time of visit . Spoke with RN, RN reported pt now only taking boost via [place]. Pt family did not want too much feeding, said pt was small eater. Current Diet Order/ Nutrition Support Boost BID Pertinent Medications protonix, nacl 0.9% Pertinent Labs 2/5 na 127, K 4.0, Cl 94, BUN 3, Cr 0.5, Glucose 98, Ca 7.6 Nutritional Hx/Data Height 1.47 m Height (Calculated Centimeters) 147.3 Current Weight (lbs) 47.627 kg Weight (Calculated Kilograms) 47.6 Weight (Calculated Grams) 94822.2 [place] Body Weight 96 % [place] Body Weight 109 Body Mass Index (BMI) 21.9 Weight Status Approriate GI Symptoms GI Symptoms None Last BM none since adm Difficult in: None Skin Integrity/Comment: intact Current %PO Negligible < 25% Estimated Nutritional Goals BEE in Kcals: Using Current wt Calories/Kcals/Kg 27-32 Kcals Calculated 1386-0954 Protein: Using Current wt Protein g/k.2-1.4 Protein Calculated 56-67 Fluid: ml 1296-1536ml (1ml/kcal) Nutritional Problem 1. Problem Problem inadequate intake from enteral feeding Etiology pt taking boost 2 cans daily Signs/Symptoms: current intake meeting 74% of calorie needs and 71% of protein needs Intervention/Recommendation Comments 1. Recommend modify TF to Boost Plus QID to increase nutrition needs. This will provide 1440kcal and 56g protein, meeting 100% of nutritional needs. RN notified . 2. Monitor TF tolerance, wt weekly, skin integrity and labs 3. F/U as moderate risk in 3-5 days, 11/18-11/20 Expected Outcomes/Goals Expected Outcomes/Goals 1. PO intake to meet at least 75% of nutritional needs. 2. Wt stability, skin to remain intact, labs to approach WNL.
[2017-11-19] MEDS: Morphine Sulfate 4 mg/mL 1mL Syr IVP PRN ×3 (02:10→12:59)
[2017-11-19] MEDS: Albuterol/Ipratropium Neb 3 ML AERS HHN SCH ×2 (07:30→12:51)
[2017-11-19] MEDS: HYDROmorphone 1 mg/mL 1mL Syr IVP PRN (08:27)
--- NOTE | 2017-11-19 10:46 | General Progress Note ---
Subjective - Review of Systems Service Date: 11/19/17 Subjective: ADDENDUM TO DC SUMMARY: Pt is awake and alert. She states she does not want to continue going in and out of hospitals. She doesn't want anymore chemo or other therapies. She states she's tired and just wants to be comfortable. No n,v,d or cp. K replenished on 11/15/17. On abx. No fevers or chills. continues to require morphine for pain. Objective - Results Result Diagrams: 11/14/17 06:21 11/15/17 08:03 Recent Labs: Laboratory Last Values WBC 4.0 Th/cmm (4.8-10.8) L 11/14/17 06:21 RBC 3.14 Mil/cmm (3.80-5.20) L 11/14/17 06:21 Hgb 9.6 gm/dL (12-16) L 11/14/17 06:21 Hct 27.8 % (41.0-60) L 11/14/17 06:21 MCV 88.5 fl (81-100) 11/14/17 06:21 MCH 30.6 pg (27.0-31.0) 11/14/17 06:21 MCHC Differential 34.6 pg (28.0-36.0) 11/14/17 06:21 RDW 14.9 % (11.5-20.0) 11/14/17 06:21 Plt Count 267 Th/cmm (150-400) 11/14/17 06:21 MPV 7.2 fl 11/14/17 06:21 Neutrophils % 62.5 % (40.0-80.0) 11/14/17 06:21 Lymphocytes % 26.3 % (20.0-50.0) 11/14/17 06:21 Monocytes % 10.1 % (2.0-10.0) H 11/14/17 06:21 Eosinophils % 1.0 % (0.0-5.0) 11/14/17 06:21 Basophils % 0.1 % (0.0-2.0) 11/14/17 06:21 Specimen Source ARTERIAL 11/12/17 19:49 Sample Site RIGHT RADIAL 11/12/17 19:49 pH 7.61 (7.35-7.45) H* 11/12/17 19:49 pCO2 31.0 mmHg (35.0-45.0) L 11/12/17 19:49 pO2 65.0 mmHg (80.0-100.0) L 11/12/17 19:49 HCO3 32.4 mEq/L (20.0-26.0) H 11/12/17 19:49 Base Excess 9.6 mEq/L (-3.0-3.0) H 11/12/17 19:49 O2 Saturation 96.0 % (92.0-100.0) 11/12/17 19:49 Adria Test POSITIVE 11/12/17 19:49 Vent Rate NA 11/12/17 19:49 Inspired O2 21 11/12/17 19:49 Tidal Volume NA 11/12/17 19:49 PEEP NA 11/12/17 19:49 Pressure (ins/psv/peep) NA 11/12/17 19:49 Critical Value SC 11/12/17 19:49 Sodium 127 mEq/L (136-145) L 11/15/17 08:03 Potassium 4.0 mEq/L (3.5-5.1) 11/15/17 08:03 Chloride 94 mEq/L (98-107) L 11/15/17 08:03 Carbon Dioxide 27.1 mEq/L (21.0-31.0) 11/15/17 08:03 Anion Gap 9.9 (7.0-16.0) 11/15/17 08:03 BUN 3 mg/dL (7-25) L 11/15/17 08:03 Creatinine 0.5 mg/dL (0.6-1.2) L 11/15/17 08:03 Est GFR ( Amer) > 60.0 ml/min (>90) 11/15/17 08:03 Est GFR (Non-Af Amer) > 60.0 ml/min 11/15/17 08:03 BUN/Creatinine Ratio 6.0 11/15/17 08:03 Glucose 98 mg/dL (70-105) 11/15/17 08:03 Calcium 7.6 mg/dL (8.6-10.3) L 11/15/17 08:03 Total Bilirubin 0.4 mg/dL (0.3-1.0) 02/05/18 08:03 AST 16 U/L (13-39) 11/15/17 08:03 ALT 12 U/L (7-52) 11/15/17 08:03 Alkaline Phosphatase 41 U/L (34-104) 11/15/17 08:03 Total Protein 5.8 gm/dL (6.0-8.3) L 11/15/17 08:03 Albumin 2.5 gm/dL (3.7-5.3) L 11/15/17 08:03 Globulin 3.3 gm/dL 11/15/17 08:03 Albumin/Globulin Ratio 0.8 (1.0-1.8) L 11/15/17 08:03 Urine Source RANDOM 11/12/17 19:42 Urine Color YELLOW 11/12/17 19:42 Urine Clarity CLOUDY (CLEAR) H 11/12/17 19:42 Urine pH 6.0 (4.6 - 8.0) 11/12/17 19:42 Ur Specific [place] 1.020 (1.005-1.030) 11/12/17 19:42 Urine Protein TRACE mg/dL (NEGATIVE) 11/12/17 19:42 Urine Glucose (UA) NEGATIVE mg/dL (NEGATIVE) 11/12/17 19:42 Urine Ketones 40 mg/dL (NEGATIVE) H 11/12/17 19:42 Urine Blood TRACE (NEGATIVE) 11/12/17 19:42 Urine Nitrate POSITIVE (NEGATIVE) H 11/12/17 19:42 Urine Bilirubin NEGATIVE (NEGATIVE) 11/12/17 19:42 Urine Urobilinogen 1.0 E.U./dL (0.2 - 1.0) 11/12/17 19:42 Ur Leukocyte Esterase NEGATIVE (NEGATIVE) 11/12/17 19:42 Urine RBC NONE SEEN /hpf (0-5) 11/12/17 19:42 Urine WBC 0-2 /hpf (0-5) 11/12/17 19:42 Ur Epithelial Cells FEW /lpf (FEW) 11/12/17 19:42 Urine Bacteria MANY /hpf (NONE SEEN) H 11/12/17 19:42 Vancomycin Trough 6.8 ug/mL (10-20) L 11/18/17 19:00 - Physical Exam Vitals and I&O: Vital Signs Temp 97.7 F 11/19/17 04:00 Pulse 96 11/19/17 08:25 Resp 18 11/19/17 07:30 BP 131/74 11/19/17 08:25 Pulse Ox 96 11/19/17 07:30 Intake & Output 11/18/17 11/19/17 11/19/17 18:59 06:59 18:59 Intake Total 1475 Balance 1475 Weight (lbs) 47.627 kg Intake: Intake, IV Amount 1000 Sodium Chloride 0.9% 1, 1000 000 ml @ 100 mls/hr IV . Q10H [facility] Rx#:[id number] Oral 0 Tube Feeding 475 Other: # Voids 4 # Bowel Movements 1 Active Medications: Current Medications Acetaminophen (Tylenol) 500 mg GT Q6H PRN PRN Reason: Fever > 101 Stop: 01/13/18 17:34 Last Admin: 11/16/17 21:11 Dose: 500 mg Acetaminophen/Hydrocodone Bitart ([place] 10 Mg/325 Mg) 1 tab PO Q6H PRN PRN Reason: Moderate Pain Stop: 01/12/18 01:51 Last Admin: 11/18/17 00:51 Dose: 1 tab Albuterol/Ipratropium (Duoneb Neb) 3 ml HHN [id number] MONI Stop: 01/12/18 06:59 Last Admin: 11/19/17 07:30 Dose: 3 ml Albuterol/Ipratropium (Duoneb Neb) 3 ml HHN Q4HRT PRN PRN Reason: Shortness of Breath Stop: 01/12/18 01:51 Last Admin: 11/19/17 01:24 Dose: 3 ml Hydromorphone HCl (Dilaudid) 1 mg IVP Q4HR PRN PRN Reason: Severe pain Stop: 01/13/18 10:24 Last Admin: 11/19/17 08:27 Dose: 1 mg Sodium Chloride (Nacl 0.9%) 1,000 mls @ 100 mls/hr IV .Q10H MONI Stop: 01/12/18 01:59 Last Admin: 11/18/17 18:44 Dose: 100 mls/hr Vancomycin HCl 1 gm/ Sodium (Chloride) 250 mls @ 165 mls/hr IV Q18H MONI Stop: 01/18/18 15:59 Lorazepam (Ativan) 1 mg IVP Q4H PRN; Protocol PRN Reason: Anxiety/Agitation Stop: 01/12/18 01:51 Metoprolol Tartrate (Lopressor) 50 mg PO BID MONI Stop: 01/12/18 08:59 Last Admin: 11/19/17 08:25 Dose: 50 mg Miscellaneous (Probiotic Screen) 1 ea PRN PRN PRN Reason: PROTOCOL Stop: 01/13/18 15:59 Miscellaneous (Vancomycin Iv Per Pharmacy) 1 ea PRN PRN PRN Reason: PROTOCOL Stop: 01/14/18 19:22 Morphine Sulfate (Morphine) 4 mg IVP Q3HR PRN PRN Reason: Pain (Severe) Stop: 01/12/18 18:25 Last Admin: 11/19/17 06:53 Dose: 4 mg Ondansetron HCl (Zofran) 4 mg IVP Q6H PRN PRN Reason: Nausea / Vomiting Stop: 01/12/18 01:51 Last Admin: 11/14/17 14:03 Dose: 4 mg Pantoprazole Sodium (Protonix) 40 mg IVP DAILY [facility] Stop: 01/12/18 18:44 Last Admin: 11/19/17 08:25 Dose: 40 mg Phenazopyridine HCl (Pyridium) 100 mg PO BID [facility] Stop: 01/13/18 10:14 Last Admin: 11/19/17 08:25 Dose: 100 mg General: Mild distress, Other (Weak) HEENT: Atraumatic, PERRLA Neck: no JVD Cardiovascular: Regular rate, Normal S1, Normal S2 Lungs: Clear to auscultation, Normal air movement Abdomen: Bowel sounds, Soft - Procedures Procedures: Procedures Procedure Code Date ANT NASAL PACK FOR EPIST 21.01 01/21/08 CONTROL OF [place]SE[place] 96607 01/21/08 Assessment/Plan - Assessment Assessment: Laryngeal Carcinoma UTI Severe hypokalemia Hyponatremia HTN R knee pain - Plan Plan: ADDENDUM TO DC SUMMARY: Pt seen and eval. Likely to be dc'd home today. DC was not carried out on due to placement issues. And on 11/16/17, pt was not accepted by any of the contracted SNF's. Case management and myself working on it. I've had extensive, lengthy discussions with the daughter and explained to her that her mom is awake and alert and dosen't want to continue treatement. She wants to be comfortable and agrees with hospice. Family is now in agreement and pt will be dc'd on hospice today. Nutritional Asmnt/Malnutr-PDOC - Dietary Evaluation Malnutrition Findings (Please click <Entered> for more info): Nutritional Asmnt/Malnutrition Start: 11/15/17 17: 52 Text: Status: Complete Freq: Document 11/15/17 17:52 GARY (Rec: 11/15/17 18:05 JORGE [email or web address]) Nutritional Asmnt/Malnutrition Patient General Information Nutritional Screening High Risk Consult Diagnosis UTI Pertinent Medical Hx/Surgical Hx laryngeal carcinoma, HTN Subjective Information Consult received for low wt d/ t cancer. Pt seen busy with medical staff at time of visit . Spoke with RN, RN reported pt now only taking boost via gtube. Pt family did not want too much feeding, said pt was small eater. Current Diet Order/ Nutrition Support Boost BID Pertinent Medications protonix, nacl 0.9% Pertinent Labs 2/5 na 127, K 4.0, Cl 94, BUN 3, Cr 0.5, Glucose 98, Ca 7.6 Nutritional Hx/Data Height 1.47 m Height (Calculated Centimeters) 147.3 Current Weight (lbs) 47.627 kg Weight (Calculated Kilograms) 47.6 Weight (Calculated Grams) 68422.2 Andrew Body Weight 96 % Andrew Body Weight 109 Body Mass Index (BMI) 21.9 Weight Status Approriate GI Symptoms GI Symptoms None Last BM none since adm Difficult in: None Skin Integrity/Comment: intact Current %PO Negligible < 25% Estimated Nutritional Goals BEE in Kcals: Using Current wt Calories/Kcals/Kg 27-32 Kcals Calculated 9254-8959 Protein: Using Current wt Protein g/k.2-1.4 Protein Calculated 56-67 Fluid: ml 1296-1536ml (1ml/kcal) Nutritional Problem 1. Problem Problem inadequate intake from enteral feeding Etiology pt taking boost 2 cans daily Signs/Symptoms: current intake meeting 74% of calorie needs and 71% of protein needs Intervention/Recommendation Comments 1. Recommend modify TF to Boost Plus QID to increase nutrition needs. This will provide 1440kcal and 56g protein, meeting 100% of nutritional needs. RN notified . 2. Monitor TF tolerance, wt weekly, skin integrity and labs 3. F/U as moderate risk in 3-5 days, 11/18-11/20 Expected Outcomes/Goals Expected Outcomes/Goals 1. PO intake to meet at least 75% of nutritional needs. 2. Wt stability, skin to remain intact, labs to approach WNL.
== END 2017-11-19 13:40 | disposition hospice, home (50) | DRG 689 ==
LOC: ER 16:10 → ERII 23:00 → TELE 11-13 15:09
PROVIDERS: ADMIT Family Medicine; ATTEND Family Medicine
DX: N39.0 Urinary tract infection, site not specified (principal); E43 Unspecified severe protein-calorie malnutrition; E87.3 Alkalosis; C32.9 Malignant neoplasm of larynx, unspecified; E87.1 Hypo-osmolality and hyponatremia; D63.8 Anemia in other chronic diseases classified elsewhere; Z93.1 Gastrostomy status; E87.6 Hypokalemia; F17.210 Nicotine dependence, cigarettes, uncomplicated; J40 Bronchitis, not specified as acute or chronic; M25.561 Pain in right knee; I10 Essential (primary) hypertension; R09.02 Hypoxemia; M62.81 Muscle weakness (generalized); R22.9 Localized swelling, mass and lump, unspecified; Z88.8 Allergy status to other drugs, medicaments and biological substances; Z92.21 Personal history of antineoplastic chemotherapy; Z82.49 Family history of ischemic heart disease and other diseases of the circulatory system; Z83.3 Family history of diabetes mellitus
CPT/HCPCS: 36415-UA; 70490-TC; 71045-TC; 73560-TC-RT; 80048-TC; 80053-TC; 80202-TC; 81001-TC; 82803-TC; 85025-TC; 87086-90; 90779; 94640; 94760; 97530; C9113; J0696; J1170; J2270; J2405; J3370; J7030; X3904; Z7610